=== PATIENT | male | born 1970 | race Caucasian/White ===

== ENCOUNTER 2023-09-26 19:10 | Inpatient (IN) | payer MEDICARE ==
[~2023-09-26] VITALS: Ht 177.8 cm; Wt 119.7 kg
[2023-09-26] MEDS: ACETAMINOPHEN 325MG TABLET PO STA (20:42)
[2023-09-26 20:52] LABS: BASOPHILS % 0.4 % (0.0-2.0); EOSINOPHILS % 2.2 % (0.0-5.0); HEMATOCRIT. 43.8 % (42.0-52.0); HEMOGLOBIN. 14.4 g/dL (14.0-18.0); MEAN CORPUSCULAR HEMOGLOBIN 26.4 pg (28.0-32.0); MEAN CORPUSCULAR HGB CONC 32.9 g/dL (31.0-37.0); MEAN CORPUSCULAR VOLUME 80.4 fL (80.0-94.0); MONOCYTES % 8.6 % (2.0-8.0); NEUTROPHILS % 58.8 % (40.0-76.0); PLATELET 165 x1000/uL (130-400); RED BLOOD CELL COUNT 5.45 mill/uL (4.7-6.1); RED CELL DISTRIBUTION WIDTH 15.6 % (11.6-14.6); WHITE BLOOD COUNT 7.2 x1000/uL (4.5-11.0)
[2023-09-26 20:59] LABS: PROTHROMBIN TIME 11.4 sec (9.6-11.0)
[2023-09-26 21:01] LABS: CHLORIDE 104 mEq/L (98-107); POTASSIUM 3.9 mEq/L (3.5-5.1); SODIUM 138 mEq/L (136-145)
[2023-09-26 21:02] LABS: CALCIUM 9.1 mg/dL (8.7-10.4); CARBON DIOXIDE 27 mEq/L (21-32)
[2023-09-26] MEDS: METOCLOPRAMIDE HCL 10MG/2ML VIAL IV ONE (21:02)
[2023-09-26 21:07] LABS: CREATININE 0.8 mg/dL (0.6-1.3); GLUCOSE 76 mg/dL (70-105); UREA NITROGEN BLOOD 8 mg/dL (9-23)
[2023-09-26 21:08] LABS: TROPONIN I HIGH SENSITIVITY 7 ng/L (3.0-53)
[2023-09-26] MEDS: HYDRALAZINE 20MG/ML VIAL IV ONE (23:42)
[2023-09-27] LABS: TROPONIN I HIGH SENSITIVITY 8 ng/L (3.0-53)
[2023-09-27 08:00] VITALS: BP 140/78; PULSE 78; RESP 19; TEMP 97.9
[2023-09-27] MEDS ORDERED: ACETAMINOPHEN 325MG TABLET PO PRN (09:00)
[2023-09-27] MEDS: NIFEDIPINE XL 30MG TAB PO SCH (09:00)
[2023-09-27] MEDS ORDERED: ONDANSETRON HCL 4MG/2ML INJ IV PRN (09:00)
[2023-09-27 09:19] VITALS: BP 140/78; PULSE 92; RESP 20; TEMP 98.5
[2023-09-27 12:00] VITALS: BP 114/73; PULSE 81; RESP 18; TEMP 98.1
[2023-09-27 16:00] VITALS: BP 120/83; PULSE 73; RESP 19; TEMP 97.7
[2023-09-27 20:00] VITALS: BP 128/83; PULSE 75; RESP 19; TEMP 98.1
[2023-09-28] VITALS: BP 121/76; PULSE 63; RESP 19; TEMP 97.9
[2023-09-28 04:00] VITALS: BP 135/73; PULSE 66; RESP 19; TEMP 98.4
[2023-09-28 07:36] LABS: *AMPHETAMINES SCREEN URINE NEGATIVE (NEGATIVE); *BARBITURATES SCREEN URINE NEGATIVE (NEGATIVE); *BENZODIAZEPINES SCREEN URINE NEGATIVE (NEGATIVE); *COCAINE SCREEN URINE NEGATIVE (NEGATIVE); CANNABINOID URINE SCREEN NEGATIVE (NEGATIVE); ECSTASY MDMA SCREEN URINE NEGATIVE (NEGATIVE); METHADONE URINE SCREEN NEGATIVE (NEGATIVE); OPIATES URINE SCREEN NEGATIVE (NEGATIVE); PHENCYCLIDINE URINE SCREEN NEGATIVE (NEGATIVE)
[2023-09-28] MEDS: AMLODIPINE 10MG TABLET PO SCH (08:23)
[2023-09-28] MEDS ORDERED: AMLO5TAB88 MT (08:33)
[2023-09-28 12:48] VITALS: BP 122/76; PULSE 79; TEMP 98.5; O2SAT 99
== END 2023-09-28 15:41 | disposition home or self-care (01) | DRG 305 ==
LOC: ER 19:10 → 5WST 23:25 → 7EST 09-27 08:20
PROVIDERS: ADMIT Internal Medicine; ATTEND Internal Medicine
DX: I16.0 Hypertensive urgency (principal); E11.9 Type 2 diabetes mellitus without complications; I10 Essential (primary) hypertension; F41.9 Anxiety disorder, unspecified; R07.89 Other chest pain; Z79.899 Other long term (current) drug therapy
CPT/HCPCS: 36415; 71045; 80048; 80305; 83036; 83880; 84484; 85025; 93005; 99291; J0360; J2765